=== PATIENT | male | born 1940 | race Caucasian/White ===

== ENCOUNTER 2022-06-04 05:36 | Observation (INO) | payer MEDICARE ==
[2022-05-29 12:12] LABS: BASOPHILS % (AUTO) 0.9 % (0.0-5.0); EOSINOPHILS % (AUTO) 0.5 % (0.0-8.0); HEMATOCRIT 43.3 % (42-54); LYMPHOCYTES % (AUTO) 27.3 % (21.0-51.0); MEAN CORPUSCULAR HEMOGLOBIN 32.6 pg (27.0-33.0); MEAN CORPUSCULAR HGB CONC 36.7 g/dL (32.0-36.0); MEAN CORPUSCULAR VOLUME 88.7 fL (79-99); MONOCYTES % (AUTO) 8.7 % (3.0-13.0); NEUTROPHILS % (AUTO) 62.3 % (40.0-77.0); PLATELET COUNT (AUTO) 195 K/uL (130-400); RED BLOOD CELL COUNT(AUTO) 4.88 MIL/uL (4.50-6.20); RED CELL DISTRIBUTION WIDTH 12.4 % (11.0-15.5); WHITE BLOOD COUNT (AUTO) 7.6 K/uL (4.8-10.8)
[2022-05-29 12:27] LABS: INR 0.96 (0.85-1.15); PROTHROMBIN TIME 10.5 SEC (9.6-11.6)
[2022-05-29 12:28] LABS: PARTIAL THROMBOPLASTIN TIME 30.5 SEC (26.3-35.5)
[2022-05-29 12:41] LABS: CREATININE 0.8 mg/dL (0.5-1.5); POTASSIUM 3.5 mmol/L (3.5-5.1)
[2022-06-03 11:45] VITALS: BP 179/89
[2022-06-04] VITALS (25 sets, daily range): BP systolic 87–136; BP diastolic 45–74
[~2022-06-04] VITALS: Ht 170.2 cm; Wt 83.5 kg
[~2022-06-04 05:36] MED LIST: AEC81 PO; ALLO300T2 PO; AMLO-257 PO; CETI10TA57 PO; FAMO20TA8 PO; FISH1CAP63 PO; GLUC-252 PO; HYDR25TA PO; MELO-108 PO; METO-409 PO; MVIT PO; PRAV40TA3 PO; RAMI10CA69 PO
[2022-06-04] MEDS: CEFAZOLIN SODIUM 1 GM VIAL IVP SCH ×4 (06:00→21:40)
[2022-06-04] MEDS: LACTATED RINGERS 1000ML 1,000 ML IV SCH ×3 (06:39→14:58)
[2022-06-04] MEDS ORDERED: LIDOCAINE PF 100MG/5ML (2%) SYRINGE 5ML ONE (06:59)
[2022-06-04] MEDS ORDERED: FENTANYL CITRATE PF 50 MCG/1 ML 2ML VIAL ONE (06:59)
[2022-06-04] MEDS ORDERED: PROPOFOL 10 MG/ML 20ML VIAL IV ONE (06:59)
[2022-06-04] MEDS ORDERED: ROCURONIUM 10MG/1ML SYR 10 MG/ML ML ONE (06:59)
[2022-06-04] MEDS ORDERED: GLYCOPYRROLATE 1 MG/5 ML SYRINGE ONE (06:59)
[2022-06-04] MEDS ORDERED: ROPIVACAINE 0.5% 5MG/ML 30ML IJ ONE (07:03)
[2022-06-04] MEDS ORDERED: FAMOTIDINE 20MG VIAL IV ONE (07:20)
[2022-06-04] MEDS ORDERED: ONDANSETRON 4MG INJ ONE (07:24)
[2022-06-04] MEDS ORDERED: TRANEXAMIC ACID 1000MG/10ML ONE (07:48)
[2022-06-04] MEDS: ACETAMINOPHEN 500 MG TABLET PO SCH ×2 (08:00→16:34)
[2022-06-04] MEDS ORDERED: MORPHINE 4 MG SYG IVP PRN (08:00)
[2022-06-04] MEDS ORDERED: ONDANSETRON 4MG INJ IVP PRN (08:00)
[2022-06-04] MEDS ORDERED: HYDROCODONE/ACETAMINOPHEN 5/325 MG TAB PO PRN (08:00)
[2022-06-04] MEDS: 0.9%NACL 1000ML 1,000 ML IV SCH ×2 (08:00→18:00)
[2022-06-04] MEDS: HYDROCHLOROTHIAZIDE 25 MG TABLET PO SCH (09:00)
[2022-06-04] MEDS: POLYETHYLENE GLYCOL 3350 17 GM POWD.PACK PO SCH (09:00)
[2022-06-04] MEDS: AMLODIPINE 5 MG TAB PO SCH (09:00)
[2022-06-04] MEDS: METOPROLOL SUCCINATE 50 MG TAB.SR.24H PO SCH (09:00)
[2022-06-04] MEDS: FAMOTIDINE 20MG TAB PO SCH (09:00)
[2022-06-04] MEDS: ASPIRIN 81 MG EC TAB PO SCH ×2 (09:00→21:39)
[2022-06-04] MEDS: MELOXICAM 7.5 MG TABLET PO SCH (09:00)
[2022-06-04] MEDS ORDERED: NEOSTIGMINE 5MG/5ML SYR IV ONE (10:03)
[2022-06-04] MEDS: TRAMADOL HCL 50 MG TABLET PO SCH ×3 (11:44→18:00)
[2022-06-04] MEDS: HYDROCODONE/ACETAMINOPHEN 10/325 MG TAB PO PRN ×2 (11:49→22:38)
[2022-06-04] MEDS ORDERED: LISINOPRIL 40 MG TABLET PO SCH (21:00)
[2022-06-04] MEDS ORDERED: ALLOPURINOL 300 MG TABLET PO SCH (21:00)
[2022-06-05] MEDS: HYDROCODONE/ACETAMINOPHEN 10/325 MG TAB PO PRN (03:11)
[2022-06-05] MEDS: 0.9%NACL 1000ML 1,000 ML IV SCH (04:00)
[2022-06-05 04:25] VITALS: BP 137/79
[2022-06-05 05:14] LABS: HEMATOCRIT 35.8 % (42-54); MEAN CORPUSCULAR HEMOGLOBIN 32.8 pg (27.0-33.0); MEAN CORPUSCULAR HGB CONC 36.3 g/dL (32.0-36.0); MEAN CORPUSCULAR VOLUME 90.4 fL (79-99); RED BLOOD CELL COUNT(AUTO) 3.96 MIL/uL (4.50-6.20); RED CELL DISTRIBUTION WIDTH 12.6 % (11.0-15.5)
[2022-06-05 05:35] LABS: POTASSIUM 3.8 mmol/L (3.5-5.1)
[2022-06-05] MEDS: TRAMADOL HCL 50 MG TABLET PO SCH ×4 (06:00→09:06)
[2022-06-05 08:00] VITALS: BP 130/67
[2022-06-05] MEDS: ASPIRIN 81 MG EC TAB PO SCH (09:03)
[2022-06-05] MEDS: POLYETHYLENE GLYCOL 3350 17 GM POWD.PACK PO SCH (09:03)
[2022-06-05] MEDS: HYDROCHLOROTHIAZIDE 25 MG TABLET PO SCH (09:03)
[2022-06-05] MEDS: AMLODIPINE 5 MG TAB PO SCH (09:03)
[2022-06-05] MEDS: METOPROLOL SUCCINATE 50 MG TAB.SR.24H PO SCH (09:03)
[2022-06-05] MEDS: MELOXICAM 7.5 MG TABLET PO SCH (09:04)
[2022-06-05] MEDS: FAMOTIDINE 20MG TAB PO SCH (09:04)
[2022-06-05] MEDS: ACETAMINOPHEN 500 MG TABLET PO SCH ×2 (09:06)
[2022-06-05 11:49] VITALS: BP 132/65
[2022-06-07] MEDS ORDERED: BISACODYL 10 MG SUPP.RECT RC PRN (08:00)
== END 2022-06-05 14:05 | disposition home or self-care (01) ==
LOC: DAH 05:36 → OBSVTOIN 07:59 → DAH 07:59 → INTOOBSV 07:59 → DAHIP 07:59 → 4BH 11:17
PROVIDERS: ADMIT Orthopaedic Surgery; ATTEND Orthopaedic Surgery
DX: M19.011 Primary osteoarthritis, right shoulder (principal); Z20.822 Contact with and (suspected) exposure to COVID-19; M75.101 Unspecified rotator cuff tear or rupture of right shoulder, not specified as traumatic; K21.9 Gastro-esophageal reflux disease without esophagitis; Z87.891 Personal history of nicotine dependence; Z85.828 Personal history of other malignant neoplasm of skin; Z79.899 Other long term (current) drug therapy
CPT/HCPCS: 80048 ×2; 85025; 85610; 85730; 87426; 36415 ×2; 73030 ×2; 87641; 23472; 96374; 96376; 76942; 64415; 85027; 97161; 97530; A6260; G0378 ×26; A4663; A4215 ×2; A4565; C1776; J7120; J3490 ×3; J3010; J0690 ×3; J2710; J2001; J2704; J2405; J2795; G0168; A4649 ×3; A4930; A5120; A4223; A4222; A4221

== ENCOUNTER 2022-07-23 05:34 | Day surgery (SDC) | payer MEDICARE ==
[2022-07-19 11:37] LABS: BASOPHILS % (AUTO) 0.8 % (0.0-5.0); EOSINOPHILS % (AUTO) 0.8 % (0.0-8.0); HEMATOCRIT 44.3 % (42-54); MEAN CORPUSCULAR HEMOGLOBIN 32.1 pg (27.0-33.0); MEAN CORPUSCULAR HGB CONC 35.7 g/dL (32.0-36.0); MONOCYTES % (AUTO) 10.5 % (3.0-13.0); NEUTROPHILS % (AUTO) 62.3 % (40.0-77.0); PLATELET COUNT (AUTO) 225 K/uL (130-400); RED BLOOD CELL COUNT(AUTO) 4.92 MIL/uL (4.50-6.20); RED CELL DISTRIBUTION WIDTH 12.4 % (11.0-15.5)
[2022-07-19 11:52] LABS: CREATININE 0.8 mg/dL (0.5-1.5); POTASSIUM 4.5 mmol/L (3.5-5.1)
[2022-07-22 10:36] VITALS: BP 191/92
[~2022-07-23] VITALS: Ht 170.2 cm; Wt 82.6 kg
[2022-07-23] VITALS (17 sets, daily range): BP systolic 106–155; BP diastolic 62–86
[~2022-07-23 05:34] MED LIST changes: -FISH1CAP63 PO; -MELO-108 PO; -MVIT PO
[2022-07-23] MEDS ORDERED: CEFAZOLIN SODIUM 1 GM VIAL IVP SCH (06:00)
[2022-07-23] MEDS ORDERED: LACTATED RINGERS 1000ML 1,000 ML IV SCH (06:00)
[2022-07-23 06:52] LABS: CREATININE 0.8 mg/dL (0.5-1.5); POTASSIUM 3.4 mmol/L (3.5-5.1)
[2022-07-23] MEDS ORDERED: SUCCINYLCHOLINE CHLORIDE 20 MG/ML 10 ML VIAL ONE (07:08)
[2022-07-23] MEDS ORDERED: LIDOCAINE HCL MPF 1% 5ML VIAL ONE (07:08)
[2022-07-23] MEDS ORDERED: MIDAZOLAM HCL 1 MG/ML 2ML VIAL ONE (07:09)
[2022-07-23] MEDS ORDERED: PROPOFOL 10 MG/ML 20ML VIAL IV ONE (07:09)
[2022-07-23] MEDS ORDERED: ONDANSETRON 4MG INJ ONE (07:09)
[2022-07-23] MEDS ORDERED: FENTANYL CITRATE PF 50 MCG/1 ML 2ML VIAL ONE (07:10)
[2022-07-23] MEDS ORDERED: ROCURONIUM 10MG/1ML SYR 10 MG/ML ML ONE (07:13)
[2022-07-23] MEDS ORDERED: CEFAZOLIN SODIUM 2 GM VIAL IV ONE (07:15)
[2022-07-23] MEDS ORDERED: EPHEDRINE SULFATE 50 MG/ML AMPULE ONE (07:27)
[2022-07-23] MEDS ORDERED: GLYCOPYRROLATE 1 MG/5 ML SYRINGE ONE (08:15)
[2022-07-23] MEDS ORDERED: NEOSTIGMINE 5MG/5ML SYR IV ONE (08:15)
[2022-07-23 12:38] LABS: APPEARANCE BODY FLUID TURBID (CLEAR); BODY FLUID WBC 1250 /cu. mm.; COLOR,BODY FLUID RED (LT YELLOW); SPECIMENTYPE,BODY FLUID ASPIRATE; TOTAL VOLUME,BODY FLUID 5 mL
[2022-07-23 12:39] LABS: BODY FLUID RBC 85000 /cu. mm.
[2022-07-23 13:07] LABS: BF LYMPHOCYTE 57 %; BF MESOTHELIAL 21 %; BF MONOCYTE 5 %
== END 2022-07-23 10:30 | disposition home or self-care (01) ==
LOC: DAH 05:34
PROVIDERS: ATTEND Orthopaedic Surgery
DX: M96.841 Postprocedural hematoma of a musculoskeletal structure following other procedure (principal); S40.011A Contusion of right shoulder, initial encounter; Z87.891 Personal history of nicotine dependence; Z95.1 Presence of aortocoronary bypass graft; Z98.890 Other specified postprocedural states; Y83.8 Other surgical procedures as the cause of abnormal reaction of the patient, or of later complication, without mention of misadventure at the time of the procedure; Y82.8 Other medical devices associated with adverse incidents
CPT/HCPCS: 80048 ×2; 85025; 87426; 36415 ×2; 93005; 23030; 89051; 87070; 87076; 87077; 87186; A6260; A4663; A4649; J0690 ×2; J7120; J3010; J3490 ×3; J2710; J2250; J2704; J2405; A6223; A4930; A5120; A4215; A4223; A4222; A4221; A4600; J0330

== ENCOUNTER → 2023-06-27 | Outpatient (CLI) | payer MEDICARE ==
[2023-06-27 13:07] LABS: CREATININE 0.7 mg/dL (0.5-1.5)
== END | disposition home or self-care (01) ==
LOC: LAB 12:23
PROVIDERS: ATTEND Internal Medicine Gastroenterology
DX: R93.2 Abnormal findings on diagnostic imaging of liver and biliary tract (principal)
CPT/HCPCS: 36415; 82565; 84520; 86316

== ENCOUNTER → 2024-04-12 | Outpatient (CLI) | payer MEDICARE ==
[~2024-04-12] MED LIST changes: +IOHEXOL 350 MG/ML 100ML INFUS..BTL IV ONE; +IOHEXOL-350 50ML VIAL IV ONE; -RAMI10CA69 PO; +RAMI10CA76 PO
== END | disposition home or self-care (01) ==
LOC: RAH 08:57 → EDSTATUS 09:30
PROVIDERS: ATTEND Internal Medicine Cardiovascular Disease
DX: I71.40 Abdominal aortic aneurysm, without rupture, unspecified (principal); K80.20 Calculus of gallbladder without cholecystitis without obstruction; I70.0 Atherosclerosis of aorta
CPT/HCPCS: 75635; Q9967 ×2

== ENCOUNTER → 2025-07-08 | Outpatient (CLI) | payer MEDICARE ==
[~2025-07-08] MED LIST changes: -IOHEXOL-350 50ML VIAL IV ONE; -PRAV40TA3 PO; +PRAV40TA62 PO
--- NOTE | 2025-07-08 15:58 | HMCIMG ---
EXAM: CT Abdomen with and without IV contrast CLINICAL HISTORY: ABNORMAL FINDINGS ON DIAGNOSTIC IMAGING OF LIVER AND BILIARY TRACT TECHNIQUE: Axial computed tomography images of the abdomen and pelvis with and without intravenous contrast. CONTRAST: with and without intravenous contrast. COMPARISON: 07/04/23 FINDINGS: LUNG BASES: Septal thickening with bronchiectasis in the bilateral lower lobes, representing interstitial lung disease. No pleural effusions are seen. LIVER: Stable 0.5 cm-sized non-enhancing cystic lesions in segment VIII and the caudate lobe of the liver GALLBLADDER AND BILE DUCTS: Subcentimeter gallstones. No biliary ductal dilatation is evident. PANCREAS: Stable non-enhancing cystic lesions in the pancreas. SPLEEN: Unremarkable. ADRENAL GLANDS: Unremarkable. KIDNEYS, URETERS, AND BLADDER: The kidneys appear within normal limits. There is no hydronephrosis or hydroureter. No urinary calculi are seen. STOMACH AND BOWEL: Unremarkable appearance of the stomach and bowel. No evidence of bowel obstruction. No evidence suggesting enteritis or colitis. APPENDIX: No evidence of acute appendicitis on CT examination. PERITONEUM: No free fluid. No free air. LYMPH NODES: No lymphadenopathy is evident. REPRODUCTIVE: Unremarkable as visualized. VASCULATURE: Extensive vascular calcification in the aorta and its major branches. Stable partially thrombosed 3.9 cm infrarenal abdominal aortic aneurysm. Atherosclerosis. No evidence of abdominal aortic dissection. BONES: Posterior fixation of the L4 and L5 vertebrae. No aggressive appearing osseous lesion. No acute osseous pathology evident. IMPRESSION: Stable partially thrombosed 3.9 cm infrarenal abdominal aortic aneurysm. Atherosclerosis. Subcentimeter gallstones. No biliary ductal dilatation is evident. 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 /[place]
== END | disposition home or self-care (01) ==
LOC: RAH 07:48
PROVIDERS: ATTEND Internal Medicine Gastroenterology
DX: K80.20 Calculus of gallbladder without cholecystitis without obstruction (principal); I71.43 Infrarenal abdominal aortic aneurysm, without rupture; I70.90 Unspecified atherosclerosis; J84.9 Interstitial pulmonary disease, unspecified; J47.9 Bronchiectasis, uncomplicated; K76.89 Other specified diseases of liver; R93.2 Abnormal findings on diagnostic imaging of liver and biliary tract
CPT/HCPCS: 74170; Q9967